=== PATIENT | female | born 1990 | race Caucasian/White ===

== ENCOUNTER 2017-06-12 18:01 | Emergency (ER) | payer SELFPAY ==
[~2017-06-12] VITALS: Ht 177.8 cm; Wt 97.3 kg
[~2017-06-12 18:01] MED LIST: DIME50TA49 PO; OXYC1TAB3 PO
[2017-06-12 18:16] VITALS: TEMP 37.1; Ht 177.8 cm; Wt 97.3 kg
[2017-06-12] MEDS ORDERED: ACETAMINOPHEN 500 MG TAB PO STA (18:29)
[2017-06-12] MEDS ORDERED: CEFDINIR 300 MG CAP PO STA (18:29)
[2017-06-12] MEDS ORDERED: OXYCODONE HCL IR 5 MG TAB (IMMEDIATE RELEASE) PO STA (18:29)
[2017-06-12] MEDS ORDERED: DEXT1LIQ58 PO (18:54)
[2017-06-12] MEDS ORDERED: ACET1SUS PO (18:54)
[2017-06-12] MEDS ORDERED: EPP3/2 IM (19:12)
[2017-06-12] MEDS ORDERED: IBUP-1050 PO (19:18)
[2017-06-12] MEDS ORDERED: ACET-1256 PO (19:18)
[2017-06-12 19:28] VITALS: BP 115/75; PULSE 71; O2SAT 97
[2017-06-12] MEDS ORDERED: CEFD1CAP14 PO (19:31)
--- NOTE | 2017-06-12 21:45 | EMERGENCY ROOM VISIT NOTE ---
History Report prepared by Ankur: Joanna Tyler Under the Supervision of: Dr. Jules Diaz D.O. First contact with patient: 18:18 Chief Complaint: SORETHROAT Stated Complaint: POUNDING IN WHOLE L SIDE OF HEAD,CAN'T SWALLOW History of Present Illness The patient is a 26 year old female who presents to the Emergency Room with complaints of persistent sore throat starting 5 days ago. This morning she started having a left sided headache and left ear pain. Her nose is runny. The headache worsens with swallowing. Patient is able to swallow. She has full range of motion of her neck. Pain is a 10 out of 10. It does originate from the left ear. It is sharp stabbing in nature. She is coughing up green sputum. She denies any fever, change in vision, weakness, numbness, abdominal pain, vaginal bleeding, or vaginal discharge. Source of History: patient Onset: 5 days ago Position: throat Quality: other (sore) Timing: other (persistent) Associated Symptoms: + headache, No fevers, No abdominal pain, No weakness, No numbness Note: Pt reports left ear pain. Review of Systems See HPI for pertinent positives & negatives. A total of 10 systems reviewed and were otherwise negative. Past Medical & Surgical Medical Problems: (1) Bipolar Disorder, Unspecified (2) Tobacco Use Disorder (3) Urin Tract Infection Nos Family History Cancer Diabetes mellitus FH: gallbladder disease Heart disease Hypertension Kidney disease Kidney stones Social History Smoking Status: Current Every Day Smoker Alcohol Use: none Drug Use: none Marital Status: Housing Status: lives with family Occupation Status: unemployed Current/Historical Medications Scheduled Acetaminophen (Tylenol), 1,000 MG PO prn ud Acetaminophen W/ Dm (Tylenol Cold/Cough/Sore T 160-5 mg/5Ml), 1 DOSE PO PRN UD Cefdinir (Omnicef), 300 MG PO Q12H Dextromethorphan-Phenylephrine (Vicks Dayquil Cold & Flu), 1 DOSE PO prn ud Epinephrine (Epipen 2-Remington), 1 DOSE IM UD Ibuprofen (Advil), 400 MG PO PRN UD Scheduled PRN Dimenhydrinate (Dramamine), 50-100 MG PO Q6 PRN for Nausea Allergies Coded Allergies: Penicillins (Verified Allergy, Mild, 08/27/12) Physical Exam Vital Signs Date Time Temp Pulse Resp B/P (MAP) Pulse Ox O2 Delivery O2 Flow Rate FiO2 06/12/17 19:28 71 18 115/75 97 Room Air 06/12/17 18:16 37.1 82 20 126/81 99 Room Air 06/12/17 18:14 99 Room Air Physical Exam GENERAL: Sitting up in bed, tearful, non-toxic EYE EXAM: conjunctiva injected. HEAD: No mastoid tenderness. EARS: Right TM with cerumen impaction. Left TM bulging and erythematous. OROPHARYNX: Bilateral pharyngeal exudates, tolerating secretions, lips, buccal mucosa, and tongue normal and mucous membranes are dry, able to open mouth completely, normal phonation. NECK: supple, no nuchal rigidity, no adenopathy, non-tender, full range of motion LUNGS: Clear to auscultation. Normal chest wall mechanics HEART: no murmurs, S1 normal and S2 normal ABDOMEN: abdomen soft, non-tender, normo-active bowel sounds, no masses, no rebound or guarding. SKIN: no rashes and no bruising UPPER EXTREMITIES: upper extremities are grossly normal. LOWER EXTREMITIES: No pitting edema. NEURO EXAM: Normal sensorium, cranial nerves II-XII grossly intact, normal speech, no gross weakness of arms, no gross weakness of legs. Medical Decision & Procedures Medications Administered Medications (Trade) Dose Ordered Sig/Flores Route Start Time Stop Time Status Last Admin Dose Admin Cefdinir (Omnicef Cap) 300 mg ONE STAT PO 06/12/17 18:29 06/12/17 18:30 DC 06/12/17 18:39 300 MG Oxycodone HCl (Roxicodone Immediate Rel Tab) 5 mg NOW STAT PO 06/12/17 18:29 06/12/17 18:30 DC 06/12/17 18:40 5 MG Acetaminophen (Tylenol Tab) 1,000 mg NOW STAT PO 06/12/17 18:29 06/12/17 18:30 DC 06/12/17 18:39 1,000 MG ED Course ED COURSE: Vital signs were reviewed and showed normal vitals. The patients medical record was reviewed The above diagnostic studies were performed and reviewed. ED treatments and interventions as stated above. 1820: The patient was evaluated in room A11B. A complete history and physical examination was performed. 1828: Acetaminophen 1000 mg PO, Oxycodone HCl 5 mg PO, Cefdinir 300 mg PO. 193: Upon reevaluation, the patient is tolerating PO without difficulty. I discussed my findings with the patient and she understands and agrees with the treatment plan. Based on the patients age, coexisting illnesses, exam and lab findings the decision to treat as an outpatient was made. The patient remained stable while under my care. The patient appeared well at the time of discharge. Medical Decision Differential diagnosis includes etiologies such as viral syndrome, tonsillitis, streptococcal pharyngitis, mononucleosis, peritonsillar abscess, retropharyngeal abscess, otitis, pneumonia, influenza, as well as others were entertained. Patient is a 18-year-old female who presents to ER for left-sided ear pain, sore throat and a cough. On exam she is a clear otitis media. Strep was negative. Patient was given Tylenol, Aloxi and Ceftin ear as she has an allergy to penicillin. She is feeling significant better. She was updated at bedside and discharged to follow-up with PCP as an outpatient for her otitis media which is likely causing the left side of her facial pain. There is no mastoid tenderness on exam. No signs of meningitis or encephalitis. Discussed with Pt concerning signs and symptoms to watch out for. Pt was instructed to follow up with their PCP and discussed with the patient their option to return to the ED at anytime for persistent or worsening symptoms. The appropriate anticipatory guidance and out-patient management, including indications for return to the emergency department, were explained at length to the patient and understood. Medication Reconcilliation Current Medication List: was personally reviewed by me Blood Pressure Screening Patient's blood pressure: Normal blood pressure Blood pressure disposition: Did not require urgent referral Impression Primary Impression: Otitis media Additional Impression: Acute pharyngitis Scribe Attestation The scribe's documentation has been prepared under my direction and personally reviewed by me in its entirety. I confirm that the note above accurately reflects all work, treatment, procedures, and medical decision making performed by me. Departure Information Dispostion Home / Self-Care Prescriptions Cefdinir (Omnicef) 300 Mg Cap 300 MG PO Q12H for 10 Days, #20 CAP Prov: Jules Diaz, DO 06/12/17 Forms HOME CARE DOCUMENTATION FORM, IMPORTANT VISIT INFORMATION Patient Instructions [facility], ED Otitis Media Acute Adult, ED Strep Pharyngitis Poss Additional Instructions Please follow up with your primary care doctor with in the next 24 hours. Any worsening of your symptoms, please return to the ED immediately. This includes any fevers greater than 100.4, worsening pain, unable to swallow, unable to open mouth, trouble breathing, difficulty turning neck, chest pain, shortness breath, persistent nausea, vomiting, unable to eat or drink, or any other concerning signs or symptoms from your standpoint. You were given medications during this visit that will inhibit your ability to drive, operate machinery and work. Please do NOT drive, operate machinery, drink alcohol or work for the next 12hrs. Problem Qualifiers Primary Impression: Otitis media Otitis media type: unspecified Chronicity: acute Qualified Codes: H66.90 - Otitis media, unspecified, unspecified ear Additional Impression: Acute pharyngitis Pharyngitis/tonsillitis etiology: unspecified etiology Qualified Codes: J02.9 - Acute pharyngitis, unspecified
== END 2017-06-12 19:40 | disposition home or self-care (01) ==
LOC: C.EDB 18:03 → C.EDA 19:40
DX: H66.90 Otitis media, unspecified, unspecified ear (principal); J02.9 Acute pharyngitis, unspecified; F31.9 Bipolar disorder, unspecified; F17.200 Nicotine dependence, unspecified, uncomplicated; Z88.0 Allergy status to penicillin

== ENCOUNTER 2025-02-09 09:47 | Observation (INO) ==
[2025-02-09] MEDS: ACETAMINOPHEN 1,000 MG/100 ML VIAL IV STA (10:26)
[2025-02-09] MEDS: SODIUM CHLORIDE 0.9% 1,000 ML IV ONE ×2 (10:26→11:22)
[2025-02-09 10:57] LABS: Hematocrit (blood only) 35.9 % (37.0-47.0); Hemoglobin 12.2 g/dL (12.0-16.0); Immature Granulocytes # (auto) 0.02 K/uL (0.01-0.20); Immature Granulocytes % (auto) 0.2 %; Mean Corpuscular Hemoglobin 34.3 pg (25.0-34.0); Mean Corpuscular Volume 100.8 fL (80.0-100.0); Platelet Count 257 K/uL (130-400); RDW Standard Deviation 46.7 fL (36.4-46.3); Red Blood Count 3.56 M/uL (4.20-5.40); White Blood Count 11.53 K/ul (4.8-10.8)
[2025-02-09] MEDS ORDERED: ONDANSETRON INJ 2 MG/ML 2 ML VIAL IV STA (10:59)
[2025-02-09] MEDS ORDERED: SODIUM CHLORIDE 0.9% 100 ML IV PRN (11:11)
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
[2025-02-09] MEDS ORDERED: SUCCINYLCHOLINE CHLORIDE 20 MG/ML 10 ML VIAL IV ONE (11:13)
[2025-02-09] MEDS ORDERED: ONDANSETRON INJ 2 MG/ML 2 ML VIAL ONE (11:13)
[2025-02-09] MEDS ORDERED: DEXAMETHASONE SOD INJ 4 MG/ML VIAL ONE (11:13)
[2025-02-09] MEDS ORDERED: PROPOFOL IV EMULSION 10 MG/ML 20 ML VIAL IV ONE (11:13)
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
[2025-02-09] MEDS: HYDROmorphone INJ 1 MG/ML SYRINGE ONE (11:23)
[2025-02-09] MEDS: TRANEXAMIC ACID / 0.7% NACL 1,000 MG/100 ML BAG IV STA (11:26)
[2025-02-09] MEDS: TXA 10% Non-IV Routes 100 MG/ML VIAL ONE (11:26)
[2025-02-09] MEDS: TRANEXAMIC ACID / 0.7% NACL 1000MG/100ML BAG IV ONE (11:26)
[2025-02-09 11:27] LABS: Pregnancy Test, Serum Negative (Negative)
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
[2025-02-09] MEDS ORDERED: KETAMINE HCL 10MG/ML SYR ONE (11:35)
[2025-02-09] MEDS ORDERED: CISATRACURIUM BESYLATE IV SOLN 2 MG/ML 10 ML VIAL IV ONE (11:46)
[2025-02-09] MEDS ORDERED: NEOSTIGMINE METHYLSULFATE 1 MG/ML 10ML VIAL ONE (11:58)
[2025-02-09] MEDS ORDERED: GLYCOPYRROLATE 0.2 MG/ML VIAL ONE (11:58)
[2025-02-09 12:18] LABS: Carbon Dioxide 26.0 mmol/L (21-32); Chloride 102.0 mmol/L (98-107); Potassium 3.7 mmol/L (3.5-5.1); Sodium 138.0 mmol/L (136-145)
[2025-02-09 12:19] LABS: Anion Gap 10.0 (3-11); Bilirubin,Total 0.5 mg/dl (0.2-1.0); Blood Urea Nitrogen 16.0 mg/dl (6-23); Calcium 9.1 mg/dl (8.6-10.3); Creatinine Clr Calc Pharmacy 80.4 ml/min; Glucose 121.0 mg/dl (70-99(Fasting))
[2025-02-09 12:20] LABS: Alanine Aminotransferase 85.0 U/L (7-52); Albumin Globulin Ratio 1.8 (0.9-2); Albumin Level 4.6 gm/dl (3.4-5.0); Alkaline Phosphatase 89.0 U/L (34-104); Globulin 2.6 gm/dl (2.5-4.0); Total Protein 7.2 gm/dl (6.0-8.3)
[2025-02-09] MEDS: BUPIVACAINE 0.5 % 5 MG/1 ML MPF 30ML VIAL ONE (12:20)
[2025-02-09] MEDS: ARISTA ABSORBABLE HEMOSTAT 3GM TOP ONE (12:20)
--- NOTE | 2025-02-09 12:31 | Post Operative Brief Note ---
Immediate Post Op Note Date of Surgery February 09, 2025 Pre & Post Diagnosis Operation Date: 02/09/25 11:10 Pre-Op Diagnosis: Extreme Bleeding From Vagina Post-Op Diagnosis: right sulcal tear I identified the patient and participated in the time-out.: Yes Procedure Operation Date: 02/09/25 11:10 Actual Procedures p Exam Under Anesthesia, Repair Right Sulcal Vaginal Wall Tear(Not Applicable) - Alannah Aldridge MD, FACOG s Diagnostic Laparoscopy(Not Applicable) - Alannah Aldridge MD, FACOG Surgeon Alannah Aldridge MD, FACOG Manager Perioperative nursing Quantitative Blood Loss (QBL) 25cc in OR Findings Consistent with Post-Op Diagnosis large vaginal laceration of the right sulcus. Normal appearing pelvis by lpsc Fluids 700cc IVF 700cc clear urine in bag that d/c 50cc clear urine in indwelling pastor Specimens Specimen Description: no specimen per surgeon Drains Pastor Catheter (pastor present upon arrival to operating room, removed prior to procedure. pastor replaced at end of procedure) Anesthesia Type General Complications none Disposition Accompanied Patient To Recovery: Yes Disposition: PCU Overlapping Procedure I was immediately available: during the entire case.
[2025-02-09] MEDS ORDERED: ONDANSETRON INJ 2 MG/ML 2 ML VIAL IV PRN (12:54)
[2025-02-09] MEDS ORDERED: FLUMAZENIL 0.1 MG/1 ML 10 ML VIAL IV PRN (12:54)
[2025-02-09] MEDS ORDERED: NALOXONE HCL 0.4 MG/1 ML VIAL/CARP IV PRN (12:54)
[2025-02-09] MEDS ORDERED: ATROPINE SULFATE 0.1 MG/ML 10ML SYR IV PRN (12:54)
[2025-02-09] MEDS ORDERED: PROMETHAZINE HCL 6.25 MG in SODIUM CHLORIDE 0.9% 50 ML IV PRN (12:54)
[2025-02-09] MEDS: HYDROmorphone INJ 1 MG/ML SYRINGE IV PRN ×2 (13:13→15:24)
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
[2025-02-09] MEDS: HYDROmorphone INJ 0.5 MG/0.5 ML SYR IV PRN (13:33)
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
--- NOTE | 2025-02-09 15:19 | Anesthesiology Progress Note ---
Date of Service February 09, 2025 Anesthesia Post Procedure Vital Signs Vital Signs: Temp Pulse Pulse Pulse Resp BP BP 02/09/25 14:15 37 C 89 18 116/75 02/09/25 14:00 65 21 113/60 02/09/25 13:50 79 14 113/55 L 02/09/25 13:40 77 16 118/33 L 02/09/25 13:30 36.6 C 85 19 104/59 L 02/09/25 13:20 84 14 105/62 02/09/25 13:10 85 16 108/83 02/09/25 13:00 64 15 109/60 02/09/25 12:51 36.3 C L 82 20 128/62 02/09/25 11:35 110 H 28 H 62/39 L 02/09/25 11:28 97 H 19 120/100 02/09/25 09:56 36.7 C 95 H 16 127/82 Pulse Ox O2 Del Method O2 Flow Rate 02/09/25 14:15 98 Room Air 02/09/25 14:00 97 Room Air 02/09/25 13:50 96 Room Air 02/09/25 13:40 98 Room Air 02/09/25 13:30 100 Room Air 02/09/25 13:20 100 Oxymask 4 02/09/25 13:10 100 Oxymask 4 02/09/25 13:00 100 Oxymask 4 02/09/25 12:51 97 Oxymask 4 02/09/25 11:35 95 Room Air 02/09/25 11:28 97 02/09/25 09:56 99 Room Air Pain Intensity Pelvic: Pain Intensity: 6 Transfer of Care Handoff Completed per policy and Other Notes Mental Status: alert / awake / arousable Patient Amnestic to Procedure: Yes Nausea / Vomiting: adequately controlled Pain: adequately controlled Airway Patency, RR, SpO2: stable & adequate BP & HR: stable & adequate Hydration State: stable & adequate Anesthetic Complications: no major complications apparent
[2025-02-09] MEDS: ACETAMINOPHEN 325 MG TAB PO PRN (15:25)
[2025-02-09 18:15] LABS: Hematocrit (blood only) 33.1 % (37.0-47.0); Hemoglobin 11.2 g/dL (12.0-16.0); Mean Corpuscular Hemoglobin 33.2 pg (25.0-34.0); Mean Corpuscular Volume 98.2 fL (80.0-100.0); Platelet Count 225 K/uL (130-400); RDW Standard Deviation 51.8 fL (36.4-46.3); Red Blood Count 3.37 M/uL (4.20-5.40); White Blood Count 14.35 K/ul (4.8-10.8)
--- NOTE | 2025-02-09 19:19 | Gynecologic Progress Note ---
Date of Service February 09, 2025 Assessment & Plan (1) Vaginal hemorrhage: (2) Vaginal trauma: Plan Vitals stable, pain controlled, packing removed with minimal blood. Plan to remove pastor and then if no significant bleeding, plan to feed. Plan d/c in the am if stable h/h and does well overnight. Patient expresses understanding. Admission and Anticipated Discharge Date Admission Date: February 09, 2025 Subjective Patient is resting in bed and does not appear uncomfortable. However, upon entering the room, she immediately begins squirming all over the bed. h/h is good and packing appears to be dry. NOtes that she has some lower midline pain. Physical Exam Physical Exam: Packing removed, nothing appears active or new. Patient screamed when I pulled the packing out but quickly settled down. Belly soft, nondistended Results & Data Vital Signs (Past 12 Hours) Vital Signs Temp Pulse Pulse Pulse Resp BP BP 02/09/25 18:21 68 16 109/39 L 02/09/25 16:17 108/36 L 02/09/25 15:30 36.9 C 79 18 83/59 L 02/09/25 15:00 37 C 90 18 101/45 L 02/09/25 14:15 37 C 89 18 116/75 02/09/25 14:00 65 21 113/60 02/09/25 13:50 79 14 113/55 L 02/09/25 13:40 77 16 118/33 L 02/09/25 13:30 36.6 C 85 19 104/59 L 02/09/25 13:20 84 14 105/62 02/09/25 13:10 85 16 108/83 02/09/25 13:00 64 15 109/60 02/09/25 12:51 36.3 C L 82 20 128/62 02/09/25 11:35 110 H 28 H 62/39 L 02/09/25 11:28 97 H 19 120/100 02/09/25 09:56 36.7 C 95 H 16 127/82 Pulse Ox O2 Del Method O2 Flow Rate 02/09/25 18:21 97 Room Air 02/09/25 16:17 02/09/25 15:30 93 Room Air 02/09/25 15:00 95 Room Air 02/09/25 14:15 98 Room Air 02/09/25 14:00 97 Room Air 02/09/25 13:50 96 Room Air 02/09/25 13:40 98 Room Air 02/09/25 13:30 100 Room Air 02/09/25 13:20 100 Oxymask 4 02/09/25 13:10 100 Oxymask 4 02/09/25 13:00 100 Oxymask 4 02/09/25 12:51 97 Oxymask 4 02/09/25 11:35 95 Room Air 02/09/25 11:28 97 02/09/25 09:56 99 Room Air PG Care Time/CCT Total # of Minutes Spent Total Time Spent with Patient: Total time spent is greater than 50% in coordination of care (as documented) at patient's floor/unit and/or counseling patient: Coding Level of Care Code None Diagnoses Vaginal hemorrhage N93.9 Vaginal trauma S39.93XA Encounter type: initial encounter (2) Vaginal trauma Encounter type: initial encounter Qualified Code(s): S39.93XA - Unspecified injury of pelvis, initial encounter
[2025-02-09 20:33] VITALS: RESP 18
[2025-02-10] MEDS: IBUPROFEN 600 MG TAB PO PRN (02:58)
[2025-02-10 06:45] LABS: Hematocrit (blood only) 33.5 % (37.0-47.0); Hemoglobin 11.2 g/dL (12.0-16.0); Mean Corpuscular Hemoglobin 33.4 pg (25.0-34.0); Mean Corpuscular Volume 100.0 fL (80.0-100.0); Platelet Count 209 K/uL (130-400); RDW Standard Deviation 52.2 fL (36.4-46.3); Red Blood Count 3.35 M/uL (4.20-5.40); White Blood Count 11.39 K/ul (4.8-10.8)
--- NOTE | 2025-02-10 09:02 | Gynecologic Progress Note ---
Date of Service February 10, 2025 Assessment & Plan (1) Vaginal hemorrhage: (2) Vaginal trauma: Plan h/h stable today. Feeling good. Plan d/c. Instructions given. f/u in the office in 4 weeks. Admission and Anticipated Discharge Date Admission Date: February 09, 2025 Subjective Patient rested overnight and was able to void. she is feeling well and has minimal pain and bleeding. Patient ate without issues. She is ready to go home. Physical Exam Constitutional: WD/WN, vitals as above Gastrointestinal (Abdomen): soft, nt, nd incisions c/d/i Psychiatric: A+Ox3, euthymic affect Results & Data Vital Signs (Past 12 Hours) Vital Signs Temp Pulse Resp BP Pulse Ox O2 Del Method 02/10/25 03:00 36.6 C 64 18 104/75 97 Room Air 02/09/25 23:01 36.7 C 60 18 88/49 L 97 Room Air PG Care Time/CCT Total # of Minutes Spent Total Time Spent with Patient: Total time spent is greater than 50% in coordination of care (as documented) at patient's floor/unit and/or counseling patient: Coding Level of Care Code 16171 SUB INP/OBS CARE 2/35MIN Diagnoses Vaginal hemorrhage N93.9 Vaginal trauma S39.93XA Encounter type: initial encounter (2) Vaginal trauma Encounter type: initial encounter Qualified Code(s): S39.93XA - Unspecified injury of pelvis, initial encounter
[2025-02-10 09:19] VITALS: BP 104/51; TEMP 98.6; O2SAT 99
[2025-02-10 09:22] VITALS: PULSE 65
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
== END 2025-02-10 10:00 | disposition home or self-care (01) ==
LOC: ED 09:47 → OR 11:35 → 4E1 11:35 → OR 11:41